=== PATIENT | male | born 1985 | race Caucasian/White ===

== ENCOUNTER 2017-04-19 15:53 | Emergency (ER) | payer MEDICARE, MEDICAID ==
[2017-04-19 16:15] VITALS: BP 132/84
--- NOTE | 2017-04-19 16:57 | UC ---
Ear Complaint HPI - HPI Summary HPI Summary: left ear pain x 7 days. No fever. Pain radiates to jaw and up to left temporal area. No fever. Pt has had some dizziness with the ear pain, and has a loop recorder in place for his heart because he has had syncope. The loop recorder has been in for about a year and a half. Pt's father states pt has not had any syncope in several months, and they are ready to take out the loop recorder. Pt denies CP, SOB. - History of Current Complaint Chief Complaint: UCEar Stated Complaint: EAR ACHE/JACKSON Time Seen by Provider: 04/19/17 16:33 Hx Obtained From: Patient, Family/Pocket Setter - father Onset/Duration: Gradual Onset, Lasting Days, Still Present Severity Initially: Moderate Severity Currently: Moderate Pain Intensity: 8 Pain Scale Used: 0-10 Numeric Aggravating Factors: Nothing Alleviating Factors: Nothing Associated Signs/Symptoms: Positive: URI Symptoms. Negative: Discharge, Hearing Loss, Trauma to Ear - Allergies/Home Medications Allergies/Adverse Reactions: Allergies Allergy/AdvReac Type Severity Reaction Status Date / Time No Known Allergies Allergy Verified 04/19/17 16:15 Home Medications: Home Medications Ibuprofen TAB* [Advil TAB*] 400 mg PO Q4H PRN 04/19/17 [History Confirmed ] Pantoprazole Sodium [Protonix] 20 mg PO TID 04/19/17 [History Confirmed 04/19/17 ] PMH/Surg Hx/FS Hx/Imm Hx Previously Healthy: No - seizure disorder, none for 6 months, not on meds, has a loop recorder Cardiovascular History: Other - has loop recorder after syncope. Father states all is fine now. (04/2017) Other Cardiovascular History: loop recorder - Surgical History Surgical History: Yes Surgery Procedure, Year, and Place: loop monitor - Family History Known Family History: Positive: Hypertension - Social History Lives: With Family Alcohol Use: None Substance Use Type: None Smoking Status (MU): Never Smoked Tobacco - Immunization History Most Recent Tetanus Shot: unknown Review of Systems Constitutional: Negative Skin: Negative Eyes: Negative ENT: Ear Ache Respiratory: Negative Cardiovascular: Negative Gastrointestinal: Negative Genitourinary: Negative Motor: Negative Neurovascular: Negative Musculoskeletal: Negative Neurological: Negative Psychological: Negative All Other Systems Reviewed And Are Negative: Yes Physical Exam Triage Information Reviewed: Yes Appearance: Well-Appearing, Well-Nourished, Pain Distress Vital Signs: Initial Vital Signs Temp 98 F 04/19/17 16:05 Pulse 79 04/19/17 16:05 Resp 20 04/19/17 16:05 BP 132/84 04/19/17 16:05 Vital Signs Reviewed: Yes Eyes: Positive: Conjunctiva Clear ENT: Positive: Pharynx normal, TMs normal - left ear. Negative: Muffled/hoarse voice Neck: Positive: Supple, Nontender, No Lymphadenopathy Respiratory: Positive: Lungs clear, Normal breath sounds, No respiratory distress Cardiovascular: Positive: RRR, No Murmur, Pulses Normal, Brisk Capillary Refill Musculoskeletal: Positive: Strength Intact, ROM Intact Neurological: Positive: Alert, Muscle Tone Normal Psychological Exam: Normal Skin Exam: Normal Ear Complaint Course/Dx - Differential Dx/Diagnosis Provider Diagnoses: left otitis media Discharge - Discharge Plan Condition: Stable Disposition: HOME Prescriptions: Amoxicillin PO (*) [Amoxicillin 875 MG (*)] 875 mg PO BID #20 tab Patient Education Materials: Otitis Media (ED) Referrals: Lizbeth Gomez MD [Medical Doctor] - 3 Days Additional Instructions: Your left ear is infected. Take the Amoxicillin as directed until it is gone. Please have definite follow up if you do not have any improvement. Return to urgent care if you have any new or worsening symptoms.
== END 2017-04-19 17:06 | disposition home or self-care (01) ==
LOC: UCCORT 15:53
DX: H66.92 Otitis media, unspecified, left ear (principal)
CPT/HCPCS: 93005; 99212; G0463

== ENCOUNTER 2019-06-09 15:50 | Emergency (ER) | payer MEDICARE, MEDICAID ==
[2019-06-09 16:27] VITALS: BP 135/70
[2019-06-09] MEDS ORDERED: Tetan/Diph/Pertus SYR(Tdap)* 0.5 ML SYR(BOOSTRIX) use SYR IM ONE (16:43)
--- NOTE | 2019-06-09 16:43 | UC ---
General HPI - HPI Summary HPI Summary: pt cut his R index finger on a lawnmower blade 2-3 weeks ago. about 3 days after the injury, he noted some warmth, redness and swelling over the knuckle that continues; however, it is not worsening. he denies FB sensation and limited movement. last tetanus is not known. pt notes the cut was at an angle. he thinks is was not deep but did bleed a lot. - History of Current Complaint Chief Complaint: UCUpperExtremity Stated Complaint: RT HAND/INDEX FINGER INJURY Time Seen by Provider: 06/09/19 16:12 Hx Obtained From: Patient Pain Intensity: 8 Associated Signs & Symptoms: Negative: Weakness - Allergy/Home Medications Allergies/Adverse Reactions: Allergies Allergy/AdvReac Type Severity Reaction Status Date / Time No Known Allergies Allergy Verified 06/09/19 16:11 Home Medications: Home Medications Dicyclomine CAP* [Bentyl CAP*] 10 mg PO TID 06/09/19 [History Confirmed 06/09/19 ] FLUoxetine CAP* [PROzac CAP*] 40 mg PO DAILY 06/09/19 [History Confirmed ] PMH/Surg Hx/FS Hx/Imm Hx GI/ History: Gastroesophageal Reflux Psychological History: Anxiety, Depression - Surgical History Surgical History: Yes Surgery Procedure, Year, and Place: loop monitor. LOOP MONITOR REMOVAL - Family History Known Family History: Positive: Hypertension - Social History Alcohol Use: None Substance Use Type: None Smoking Status (MU): Never Smoked Tobacco - Immunization History Most Recent Tetanus Shot: unknown Review of Systems All Other Systems Reviewed And Are Negative: No Constitutional: Negative: Fever, Chills Musculoskeletal: Positive: Edema - R index finger: PIP joint with slight erythema, swelling, warmth and tenderness. No streaking. No volar surface tenderness. Digit has full s/v/m function. Rest of hand is unremarkable and has full s/v/m function.. Negative: Decreased ROM Neurological: Negative: Weakness, Paresthesia, Numbness Physical Exam Vital Signs: Initial Vital Signs Temp 99.1 F 06/09/19 16:18 Pulse 96 06/09/19 16:18 Resp 18 06/09/19 16:18 BP 135/70 06/09/19 16:18 Pulse Ox 99 06/09/19 16:18 Diagnostics - Radiology No standard instances Radiology Interpretation Completed By: Radiologist - MPRESSION: SOFT TISSUE SWELLING. NO EROSION OR PERIOSTEAL REACTION. PLAIN RADIOGRAPH FINDINGS OF OSTEOMYELITIS ARE RELATIVELY LATE FINDINGS. IF THERE IS PERSISTENT CLINICAL CONCERN FOR OSTEOMYELITIS, RECOMMEND CORRELATION WITH FOLLOWUP IMAGING, THREE- PHASE BONE SCANNING, WHITE BLOOD CELL SCAN, AND/OR MRI OF THE AFFECTED REGION. Course/Dx - Differential Dx - Multi-Symptom Differential Diagnoses: Other - no fx on xray and no perosteal changes. no concern for septic joint. no concern for flexortenosynovitis. rom intact. will tx for skin infection and give hand f/u. - Diagnoses Provider Diagnosis: Cellulitis of right index finger Discharge ED - Sign-Out/Discharge Documenting (check all that apply): Patient Departure All imaging exams completed and their final reports reviewed: Yes - Discharge Plan Condition: Stable Disposition: HOME Prescriptions: Clindamycin Cap(NF) [Clindamycin Cap 300 mg Cap(NF)] 300 mg PO TID 10 Days #30 cap Patient Education Materials: Wound Infection (ED) Referrals: Maura Bobby MD [Medical Doctor] - 1 Day Additional Instructions: FOLLOW UP WITH DR BOBBY OR COVERING HAND ORTHOPEDIST TOMORROW. - Billing Disposition and Condition Condition: STABLE Disposition: Home
== END 2019-06-09 17:50 | disposition home or self-care (01) ==
LOC: UCCORT 15:50
DX: L03.011 Cellulitis of right finger (principal); Z23 Encounter for immunization; K21.9 Gastro-esophageal reflux disease without esophagitis
CPT/HCPCS: 73140; 90471; 90715; 99212; G0463

== ENCOUNTER 2019-11-19 11:16 | Emergency (ER) | payer MEDICARE, MEDICAID ==
--- OUTSIDE RECORDS SUMMARY | 2019-11-19 11:35 | XMS REPORT | Continuity of Care Document ---
:1985 External Reference #:[id number] Author Name Yudi Carrillo MD Address [address] [place] [address] Care Team Providers Name Role Phone Prabha Mcdonough MD - Gastroenterology Care Team Information Hot Stick Worker Haris Mahoney MD - Cardiovascular Care Team Information Hot Stick Worker Disease Tenzin Antonio MD - Psychiatry Care Team Information Hot Stick Worker [phone] Keila Maya PNP-BC, [employer], Ibclc Care Team Information Hot Stick Worker - Family Problems Active Problems Provider Date Attention deficit hyperactivity disorder, 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 Mental retardation María Barbosa NP Onset: 04/03/2012 Anxiety state María Barbosa NP Onset: 04/03/2012 Chest pain Kezia Rudolph ANP Onset: 11/21/2015 Palpitations Kezia Rudolph ANP Onset: 11/21/2015 Syncope and collapse Kezia Rudolph ANP Onset: 11/21/2015 Moderate intellectual disability Jigar Perera FNP Onset: 07/16/2016 Irritable bowel syndrome with diarrhea Jigar Perera FNP Onset: 01/23 Social History Type Date Description Comments Sex Unknown Tobacco Use Start: Unknown Never Smoked Cigarettes Smoking Status Reviewed: 10/23/19 Never Smoked Cigarettes ETOH Use Drinks Alcoholic Beverages Occasionally 1 dr/yr Tobacco Use Start: Unknown Patient has never smoked Allergies, Adverse Reactions, Alerts Description No Known Drug Allergies Medications Active Medications SIG Qnty Indications Ordering Provider Date Cetirizine HCL Take One Tablet 30tabs J30.9 Keila Maya, 04/29/2018 10mg By Mouth Every PNP-DZE [place]TER[place], Tablets Day Ibclc Fluoxetine HCL 1 po daily Tenzin Antonio MD 40mg Capsules Dicyclomine HCL a/d - one PO up 120caps K58.8 Clune, 10mg to qid Jigar, Capsules [employer] Pantoprazole Sodium 1 po daily Prabha Mcdonough, 40mg Tablets Multivitamin Adult 1 by mouth Unknown every day Tablets Medications Administered in Office Medication SIG Qnty Indications Ordering Provider Date PPD Jigar Perera FNP 07/29/2015 Injection Immunizations CPT Code Status Date Vaccine Lot # [id number] Given 07/27/2019 Influenza Virus Vaccine, Quadrivalent, 36 Mos+, .5ML [id number] Given 10/02/2018 Influenza Virus Vaccine, Quadrivalent, 36 Mos+, [id number] .5ML 40790 Given 07/16/2016 Influenza Virus Vaccine, Quadrivalent, 36 Mos+, [id number] .5ML [id number] Given 07/29/2015 Influenza Vaccine (Fluzone) Age 3 And Older [id number] Given 08/06/2012 Tdap injection 25019 Given 07/21/2012 flu vaccination Vital Signs Date Vital Result Comment 10/23/2019 8:58am BP Systolic Sitting Left Arm 118 mmHg BP Diastolic Sitting Left Arm 74 mmHg Body Temperature 98.4 F Heart Rate 92 /min Respiratory Rate 18 /min Height 71 inches 5'11" Weight 209.00 lb BMI (Body Mass Index) 29.1 kg/m2 BSA (Body Surface Area) 2.15 m2 [place] body weight in kilograms 78 kg 10/02/2018 2:52pm BP Systolic 118 mmHg BP Diastolic 76 mmHg Body Temperature 97.2 F Heart Rate 92 /min Respiratory Rate 18 /min Height 73 inches 6'1" Weight 206.00 lb BMI (Body Mass Index) 27.2 kg/m2 BSA (Body Surface Area) 2.18 m2 [place] body weight in kilograms 83 kg O2 % BldC Oximetry 96 % Results Test Acquired Date Facility Test Result H/L Range Note Urine Dipstick 10/23/2019 [facility]a Leuko - Negative Ua Nitrite - Negative Ua Urobilinogen .2 0.2 - 1.0 E.U./dL Ua Protein - Negative Ua PH 6 Low 6.5-7.5 Ua Blood - Negative Ua Specific [place] 1.015 1.010-1.030 Ua Ketones - Negative Ua Bilirubin - Negative Ua Glucose - Negative Procedures Date Code Description Status 10/07/2017 32133777 Colonoscopy Completed Medical Devices Description No Information Available Encounters Description No Information Available Assessments Date Code Description Provider 10/23/2019 Z00.00 Encounter for general adult medical examination Yudi Carrillo MD without abnormal findings 10/23/2019 K58.0 Irritable bowel syndrome with diarrhea Yudi Carrillo MD 10/23/2019 F90.2 Attention-deficit hyperactivity disorder, Yudi Carrillo MD combined type Plan of Treatment 10/23/2019 - Yudi Carrillo MDZ00.00 Encounter for general adult medical examination without abnormal findingsComments:CONTINUE REGULAR EXERCISE; WORK TO ACHIEVE IDEAL WEIGHT OR CLOSE TO IT;SUNSCREEN TO AVOID SKIN CANCER;GET ENOUGH CALCIUM IN YOUR DIET AND EAT PLENTY OF FRUITS AND VEGETABLES.IMMUNIZATIONS: ALL UP TO DATE, GET YOUR YEARLY FLU SHOT;COLONOSCOPY HAS BEEN DONE.LABS ORDERED TO CHECK CHOLESTEROL, BLOOD COUNT, GLUCOSE AND KIDNEY FUNCTION. HEALTH CARE PROXY : DONE TODAYFollow up:12 mo for yearly cpe or as fummirL38.0 Irritable bowel syndrome with diarrheaComments:CONTINUE YOUR DICYCLOMINE AND FOLLOW-UP WITH DR. MCDONOUGH NEEDED.F90.2 Attention-deficit hyperactivity disorder, combined typeComments:CONTINUE THE FLUOXETINE, THIS HAS BEEN A GOOD MEDICINE FOR YOU Functional Status Functional Condition Comment Date Status Glasses Active Independent with all ADL's Active Requires assistance with transportation Active Mental Status Description No Information Available Referrals Description No Information Available
--- OUTSIDE RECORDS SUMMARY | 2019-11-19 11:35 | XMS REPORT ---
:1985 Author Care Team Providers Name Role Phone Unavailable Unavailable Unavailable Problems Condition Condition Condition Status Onset Resolution Last Treating Comments Name Details Category Date Date Treatment Clinician Date Intellectual Active 1985 Disability 00:00:00 Allergies, Adverse Reactions, Alerts This patient has no known allergies or adverse reactions. Social History Smoking Status Start Date Stop Date Unknown if ever smoked Social History Observation Description Sex Male Medications This patient has no known medications. Vital Signs This patient has no known vital signs. Procedures This patient has no known procedures. Reason for Referral This patient has no known reason for referral. Chief Complaint and Reason for Visit This patient event has no chief complaint or reason for visit specified. Results This patient has no known results. Assessments This patient has no known assessments.
[2019-11-19 11:45] VITALS: BP 139/78
--- NOTE | 2019-11-19 12:48 | UC ---
Hand/Wrist HPI - HPI Summary HPI Summary: 34-year-old male who fell approximate 6 feet off of a ladder this past weekend. He landed in the snow which he states cushion his fall. The tree branch she was cutting hit him in the left muslim area. No loss of consciousness. No vomiting since then. He has had some left lower rib pain as well as left distal forearm pain since the injury. He has been applying BenGay to the area and taking [id number] pain medications. He denies any difficulty breathing. - History Of Current Complaint Chief Complaint: UCBackPain Stated Complaint: S/P FALL(11/13/19)-LEFT SIDE BACK/SHOULDER INJURY Time Seen by Provider: 11/19/19 12:37 Hx Obtained From: Patient, Family/Architect Marine ?: No Onset/Duration: Sudden Onset, Lasting Days Severity Initially: Moderate Severity Currently: Mild Pain Intensity: 8 Character Of Pain: Dull, Aching Aggravating Factor(s): Movement, Lifting Alleviating Factor(s): Rest Associated Signs And Symptoms: Positive: Negative - Allergies/Home Medications Allergies/Adverse Reactions: Allergies Allergy/AdvReac Type Severity Reaction Status Date / Time No Known Allergies Allergy Verified 11/19/19 11:45 PMH/Surg Hx/FS Hx/Imm Hx Previously Healthy: Yes Cardiovascular History: Cardiac Disease - Surgical History Surgical History: Yes Surgery Procedure, Year, and Place: loop monitor. LOOP MONITOR REMOVAL - Family History Known Family History: Positive: Hypertension - Social History Lives: With Family Alcohol Use: None Substance Use Type: None Smoking Status (MU): Never Smoked Tobacco - Immunization History Most Recent Tetanus Shot: unknown Review of Systems All Other Systems Reviewed And Are Negative: Yes Musculoskeletal: Positive: Other: - Patient has some left lower rib pain with twisting motion and left distal forearm pain. Is Patient Immunocompromised?: No Physical Exam Triage Information Reviewed: Yes Appearance: Well-Appearing, No Pain Distress, Well-Nourished Vital Signs: Initial Vital Signs Temp 97.9 F 11/19/19 11:41 Pulse 96 11/19/19 11:41 Resp 18 11/19/19 11:41 BP 139/78 11/19/19 11:41 Pulse Ox 98 11/19/19 11:41 Vital Signs Reviewed: Yes Eyes: Positive: Conjunctiva Clear - PERRLA, EOMI. ENT: Positive: Hearing grossly normal, Pharynx normal, TMs normal, Uvula midline Neck: Positive: Supple, Nontender, No Lymphadenopathy Respiratory: Positive: Lungs clear, Normal breath sounds, No respiratory distress, No accessory muscle use - Minimal tenderness left lower rib area, no erythema, deformity, swelling or bruising is noted. Cardiovascular: Positive: RRR, No Murmur, Pulses Normal, Brisk Capillary Refill Abdomen Description: Positive: Nontender, No Organomegaly, Soft. Negative: CVA Tenderness (R), CVA Tenderness (L), Distended, Guarding, Hepatomegaly, McBurney' s Point Tenderness, Splenomegaly Bowel Sounds: Positive: Present Musculoskeletal: Positive: Strength Intact, ROM Intact, Other: - Skull is intact and nontender. The left side of the muslim area is normal with no bruising, erythema, deformity or swelling. Neurological: Positive: Alert, Muscle Tone Normal - Cranial nerves II through XII are intact. Psychological Exam: Normal Skin Exam: Normal Hand/Wrist Course/Dx - Course Course Of Treatment: Chest x-ray:FINDINGS: The heart is within normal limits in size. Mediastinal and hilar contours appear within normal limits. The lungs are underinflated. There are small infiltrates at both lung bases suggestive of atelectasis. No pleural effusion or pneumothorax is seen. There is an area of cortical irregularity in the left lateral eighth rib possibly representing a nondisplaced fracture. IMPRESSION: 1. LOW LUNG VOLUMES, SMALL BIBASILAR INFILTRATES SUGGESTIVE OF ATELECTASIS. 2. POSSIBLE NONDISPLACED LEFT LATERAL EIGHTH RIB FRACTURE. Left forearm x-ray: Negative The results of the chest x-ray were discussed with Dr. Pacheco and at this time we don't feel this is a pneumonia. The patient was given a spirometer to perform 10 times every hour over the next 3-4 days. Definite follow-up with his primary care provider if any worsening symptoms or fever. - Differential Dx/Diagnosis Provider Diagnosis: Fractured rib Discharge ED - Sign-Out/Discharge Documenting (check all that apply): Patient Departure All imaging exams completed and their final reports reviewed: Yes - Discharge Plan Condition: Fair Disposition: HOME Patient Education Materials: Rib Fracture (ED) Referrals: Debra Perera NP [Primary Care Provider] - Additional Instructions: Avoid movements that cause pain, may continue applying BenGay or warm moist compresses to the sore area. Definite follow-up with your primary care provider if you develop any fever or worsening cough. Use the spirometer 10 times every hour over the next 3-4 days. - Billing Disposition and Condition Condition: FAIR Disposition: Home
== END 2019-11-19 13:28 | disposition home or self-care (01) ==
LOC: UCCORT 11:16
DX: S22.32XA Fracture of one rib, left side, initial encounter for closed fracture (principal); R91.8 Other nonspecific abnormal finding of lung field; W22.8XXA Striking against or struck by other objects, initial encounter; W11.XXXA Fall on and from ladder, initial encounter; Y93.89 Activity, other specified; Y92.9 Unspecified place or not applicable
CPT/HCPCS: 71046; 99211; G0463